=== PATIENT | male | born 1955 | race Hispanic/Latino ===

== ENCOUNTER 2018-11-15 10:26 | Emergency (ER) | payer BC ==
[2018-11-15 10:26] VITALS: BMI 31.2
[2018-11-15 10:37] VITALS: RESP 17
--- NOTE | 2018-11-15 11:12 | ED PDOC ---
HPI: Hypertension/Hypotension Time Seen by Provider: 11/15/18 10:35 Chief Complaint (Nursing): High Blood Pressure Chief Complaint (Provider): High Blood Pressure History Per: Patient History/Exam Limitations: no limitations Current Symptoms Are (Timing): Still Present Additional Complaint(s): 62 year old male with no significant medical history, is referred to the emergency department by photographic specialist in same-day surgery department, for an evaluation of elevated blood pressure. Patient is scheduled for ORIF of right calcaneus fracture today when his blood pressure was noted at 150/119. At pr esent, patient offers physical complaints but admits to feeling anxious about the surgery. He denies headache, chest pain, dizziness, or pain to right foot. Additionally, he states that he was doing well during medical clearance visit with his primary doctor. [place] Pod: Dr. Ambrose Davis Past Medical History Reviewed: Historical Data, Nursing Documentation, Vital Signs Vital Signs: Last Vital Signs Temp 98.3 F 11/15/18 10:30 Pulse 94 H 11/15/18 10:30 Resp 17 11/15/18 10:30 BP 169/105 H 11/15/18 10:38 Pulse Ox 99 11/15/18 10:30 - Medical History PMH: Arthritis Denies: Chronic Kidney Disease - Surgical History Surgical History: No Surg Hx - Family History Family History: States: Unknown Family Hx - Immunization History Hx Tetanus Toxoid Vaccination: No Hx Influenza Vaccination: No Hx Pneumococcal Vaccination: No - Home Medications Home Medications: Ambulatory Orders Medication Instructions Recorded Losartan [Cozaar] 50 mg PO DAILY #30 tab 11/15/18 - Allergies Allergies/Adverse Reactions: Allergies Allergy/AdvReac Type Severity Reaction Status Date / Time No Known Allergies Allergy Verified 11/15/18 07:13 Review of Systems ROS Statement: Except As Marked, All Systems Reviewed And Found Negative Cardiovascular: Negative for: Chest Pain Musculoskeletal: Negative for: Foot Pain (right-sided) Neurological: Negative for: Headache, Dizziness Psych: Positive for: Anxiety Physical Exam - Reviewed Nursing Documentation Reviewed: Yes Vital Signs Reviewed: Yes - Physical Exam Appears: Positive for: Well, Non-toxic, No Acute Distress Skin: Positive for: Normal Color Eye Exam: Positive for: Normal appearance, EOMI, PERRL Cardiovascular/Chest: Positive for: Regular Rate, Rhythm Respiratory: Positive for: Normal Breath Sounds. Negative for: Wheezing, Respiratory Distress Extremity: Positive for: Other (right foot in cast) Neurologic/Psych: Positive for: Alert, Oriented (x3). Negative for: Motor/Sensory Deficits - Laboratory Results Result Diagrams: 11/15/18 11:00 11/15/18 11:00 - ECG ECG: Positive for: Interpreted By Me, Viewed By Me ECG Rhythm: Positive for: Normal QRS, Normal ST Segment, Sinus Rhythm. Negative for: ST/T Changes Rate: 90 O2 Sat by Pulse Oximetry: 99 (RA) Pulse Ox Interpretation: Normal - Progress Re-evaluation Time: 13:40 Condition: Re-examined, Improved Medical Decision Making Medical Decision Making: Initial Impression: Elevated blood pressure Differential diagnosis: hypertension Initial Plan: * EKG * Labs with UA Time: 1055 --EKG: NSR at 90 BMP. Normal QRS with no ST changes. Time: 1127 --Labs reviewed: glucose at 126mg/dL. Otherwise, (-) UA or other significant clinical abnormality. Scribe Attestation: Documented by Joceline Magallon, acting as a scribe for Cedric Pierre MD. Provider Scribe Attestation: All medical record entries made by the Scribe were at my direction and personally dictated by me. I have reviewed the chart and agree that the record accurately reflects my personal performance of the history, physical exam, medical decision making, and the department course for this patient. I have also personally directed, reviewed, and agree with the discharge instructions and disposition. Disposition - Clinical Impression Clinical Impression: Abnormal blood pressure - Patient ED Disposition Is Patient to be Admitted: No Doctor Will See Patient In The: Office Counseled Patient/Family Regarding: Studies Performed, Diagnosis, Need For Followup - Disposition Disposition: Routine/Home Disposition Time: 13:41 Condition: GOOD Additional Instructions: ENEIDA HENSLEY, thank you for letting us take care of you today. Your provider was Cedric Pierre MD and you were treated for POSS HIGH BP. The emergency medical care you received today was directed at your acute symptoms. If you were prescribed any medication, please fill it and take as directed. It may take several days for your symptoms to resolve. Return to the Emergency Department if your symptoms worsen, do not improve, or if you have any other problems. Please contact your doctor or call one of the physicians/clinics you have been referred to that are listed on the Patient Visit Information form that is included in your discharge packet. Bring any paperwork you were given at discharge with you along with any medications you are taking to your follow up visit. Our treatment cannot replace ongoing medical care by a primary care provider outside of the emergency department. Thank you for allowing the [facility] team to be part of your care today. If you had an X-Ray or CT scan: A Radiologist will review the ED reading if any change in treatment is needed we will contact you. If you had a blood, urine, or wound culture: It will take several days for the results, if any change in treatment is needed we will contact you. If you had an STI test: It will take 48 hours for the results. Please call after 1 week if you have not heard back. Prescriptions: Losartan [Cozaar] 50 mg PO DAILY #30 tab Instructions: High Blood Pressure in Adults
[2018-11-15 11:15] LABS: BASO # 0.1 K/uL (0.0-0.2); BASO % 0.6 % (0.0-2.0); EOS # 0.1 K/uL (0.0-0.7); EOS % 0.7 % (0.0-4.0); HEMOGLOBIN 15.3 g/dL (12.0-18.0); LYMPH # 1.1 K/uL (1.0-4.3); LYMPH % 12.4 % (20.0-40.0); MEAN CELL VOLUME 83.9 fl (80.0-94.0); MEAN CORPUSCULAR HGB CONC 33.3 g/dL (33.0-37.0); MEAN PLATELET VOLUME 7.4 fl (7.2-11.7); MONO # 0.4 K/uL (0.0-0.8); MONO % 4.9 % (0.0-10.0); NEUT # 7.1 K/uL (1.8-7.0); NEUT % 81.4 % (50.0-75.0); RBC 5.47 Mil/uL (4.40-5.90); RED CELL DISTRIBUTION WIDTH 14.2 % (11.5-14.5); WHITE BLOOD COUNT 8.7 K/uL (4.8-10.8)
[2018-11-15 11:21] LABS: URINE BACTERIA RARE (<OCC); URINE BILIRUBIN NEGATIVE (NEGATIVE); URINE BLOOD NEGATIVE (NEGATIVE); URINE CLARITY SLIGHTY-CLOUDY (Clear); URINE COLOR YELLOW (YELLOW); URINE GLUCOSE (UA) NEG (NEGATIVE); URINE LEUKOCYTE ESTERASE NEG Leu/uL (Negative); URINE PROTEIN NEGATIVE (NEGATIVE); URINE UROBILINOGEN 0.2-1.0 mg/dL (0.2-1.0)
[2018-11-15 11:28] LABS: BLOOD UREA NITROGEN 13 mg/dl (9-20); CALCIUM 9.7 mg/dL (8.4-10.2); GFR NON-AFRICAN AMERICAN > 60
[2018-11-15 15:40] VITALS: PULSE 86; TEMP 98.7; O2SAT 100
[2018-11-15 15:45] VITALS: BP 140/101
--- NOTE | 2018-11-15 18:21 | CARD ---
APPROVED REPORT Date of service: 11/15/2018 EKG Measurement Heart [id number] <Conclusion> Normal sinus rhythm Incomplete right bundle branch block Borderline ECG
== END 2018-11-15 14:45 | disposition home or self-care (01) ==
LOC: H.ER 10:26
DX: I10 Essential (primary) hypertension (principal)

== ENCOUNTER 2018-11-22 06:33 | Day surgery (SDC) | payer BC ==
[2018-11-22 07:13] VITALS: BMI 22.3
[2018-11-22] MEDS ORDERED: Bupivacaine 0.5% 50 ML IJ ONE (07:31)
[2018-11-22] MEDS ORDERED: ceFAZolin 2 GM in Sodium Chloride 0.9% 100 ML IVPB ONE (07:31)
[2018-11-22] MEDS ORDERED: Lidocaine 2% Inj (20ml) INFIL ONE (07:31)
--- NOTE | 2018-11-22 07:35 | CP.PCM.PN ---
Subjective - Date & Time of Evaluation Date of Evaluation: 11/22/18 Time of Evaluation: 07:33 - Subjective Subjective: Podiatry progress note for Dr. Davis, 62 y/o male patient with no PMH seen and evaluated in [facility] preoperatively for right ORIF Calcaneal fracture with possible arthrodesis, STJ Arthroscopy Patient states that 3 weeks ago he sustained fall from stairs and landed on his right heel. Patient states that he felt pain and had swelling immediatly in his right heel so he went to [facility] emergency in [facility] where X-ray was done for him showing fracture in his right calcaneous. He stats that he was put in a posterior splint for 3 weeks till the swelling goes down and scheduled for surgery today. Patient surgery was postponed last week due to high blood pressure. He states that he went to his doctor who gave him blood pressure meds and his blood pressure optimized now. Patient confirms she last ate at 9:00 PM last night. Patient is aware with his surgery Patient denies any recent feer, nausea, vomiting, cough, or shortness of breathing. PMHx: None Medications: None Allergies: NKDA Social History: Denies smoking tobacco alcohol or drug use Objective - Constitutional Appears: Well, Non-toxic, No Acute Distress - Head Exam Head Exam: ATRAUMATIC, NORMOCEPHALIC - Extremities Exam Additional comments: Right Lower Extremity focused Exam: Right lower extremity is in posterior splint. Splint is clean/dry and intact. VASC:Cap refill less than 3 seconds to all digits NEURO: epicritic and protective sensation intact MSK: Patient can perform active ROM with his toes. - Neurological Exam Neurological Exam: Alert, Awake, Oriented x3 - Psychiatric Exam Psychiatric exam: Normal Affect, Normal Mood Assessment and Plan - Assessment and Plan (Free Text) Assessment: 62 y/o male patient seen and evaluated in [facility] preoperatively for right ORIF Calcaneal fracture with possible arthrodesis, STJ Arthroscopy Plan: Pt was seen and examined in [facility] Pt NPO status was confirmed All pre-op testing and clearance in chart Pt has exhausted all conservative treatment at this time and is opting for surgical intervention Pt was explained procedure and post-operative course All pt's questions were answered to satisfaction No guarantees were made Pt understands all risks, benefits and complications of procedure Pt will follow-up with Dr. Davis within 1 week of surgery
--- NOTE | 2018-11-22 07:37 | CP.SDSHP ---
Same Day Surgery H & P - History Proposed Procedure: Right ORIF Calcaneal fracture with possible arthrodesis, STJ Arthroscopy Pre-Op Diagnosis: Right calcaneal fracture - Allergies Allergies: Allergies No Known Allergies Allergy (Verified 11/22/18 07:12) - Physical Exam Mental Status: Alert & Oriented x3 - {Optional Preform as Required} Integument: Other (RLE is in posterior splint which is C/D/I) - Impression Pt. Evaluated Today:Candidate for Anesthesia & Procedure: Yes - Date & Time Date: 11/22/18 Time: 07:37 Short Stay Discharge - Short Stay Discharge Admitting Diagnosis/Reason for Visit: S92.061A Disposition: HOME/ ROUTINE Additional Instructions (Diet, Activity): -Patient in good/stable condition for discharge home -Patient to resume medications per medical reconciliation -Resume regular diet -Please keep dressing clean, dry, & intact to surgical site -Use plastic bag over bandage for showering -Wear post op shoe at all times when ambulating -Call clinic if you see signs of infection (redness, swelling, malodor) -Please make an appointment to see Dr. Davis in office within 1 week for post-op check Progress Note/Discharge Note with Instructions: - Patient evaluated bedside in recovery s/p 1- ORIF Right calcaneal fracture. 2- Right Subtalar joint Arthrodesis. 3- Right Subtalar joint Arthroscopy. - After surgical procedure patient in NAD - (+) Void, (+) Appetite - Capillary refill time <3s and NVS intact. - Patient denies complaints at this time. - Post operative instructions and plan of care explained to patient at length. - Patient. acknowledges verbal understanding. - Patient stable for DC per podiatric surgery
[2018-11-22] MEDS ORDERED: Sodium Chloride 0.9% 1,000 ML IV SCH (07:45)
[2018-11-22] MEDS ORDERED: Lactated Ringer's 1,000 ML IV ONE ×3 (08:00→12:01)
[2018-11-22] MEDS ORDERED: Midazolam 2 MG/2 ML VIAL ONE (08:01)
[2018-11-22] MEDS ORDERED: Propofol 10 mg/ml Inj (20 ML) ONE (08:01)
[2018-11-22] MEDS ORDERED: Rocuronium 10 mg/ml (5 ml) ONE ×2 (08:18→09:34)
[2018-11-22] MEDS ORDERED: ePHEDrine 50 mg/ml Inj ONE (08:29)
[2018-11-22] MEDS ORDERED: Bupivacaine HCl 0.5% PF (30 ml) Inj ONE (11:41)
[2018-11-22] MEDS ORDERED: Neostigmine 1:1000 (1 mg/ml) Inj ONE (11:42)
[2018-11-22] MEDS ORDERED: Sevoflurane - Inhalation Anesthetic Liq (250 ml) ONE (12:22)
[2018-11-22] MEDS ORDERED: Bupivacaine HCl 0.5% PF (30 ml) Inj IJ ONE (12:51)
[2018-11-22] MEDS ORDERED: Oxycodone/Acetaminophen 5/325 mg Tab PO PRN ×2 (13:14)
[2018-11-22] MEDS ORDERED: Lactated Ringer's 1,000 ML IV SCH (13:15)
--- NOTE | 2018-11-22 13:19 | PCM.SURG1 ---
Surgeon's Initial Post Op Note - Surgeon's Notes Surgeon: Dr. Ambrose Davis, DPM Sueding Machine Operator: Dr. Kelley Mccartney. DPM/PGY3, Dr. Staci Galloway. DPM/PGY3 Type of Anesthesia: General Endo Anesthesia Administered By: Dr. Stern Pre-Operative Diagnosis: Right Calcaneal intra-articular, displaced fracture. Operative Findings: See Dictation. Injectables: 10 cc of Marcaine 0.5% for Saphenous block for post-operative analgesia. Materials: - Femoral head graft. - 1.5 cc Castano medical augment. - Castano Nilay 6.5, 80mm short headed screw. - Castano Nilay 6.5, 65mm short headed screw. - 3-0 Vicryl. - 4-0 Vicryl. - 3- 0 Prolene. - 4-0 Prolene. Post-Operative Diagnosis: Right Calcaneal intra-articular, displaced fracture. Operation Performed: 1- ORIF Right calcaneal fracture. 2- Right Subtalar joint Arthrodesis. 3- Right Subtalar joint Arthroscopy. Specimen/Specimens Removed: None. Estimated Blood Loss: EBL {In ML}: 100 Blood Products Given: N/A Drains Used: No Drains Post-Op Condition: Good Date of Surgery/Procedure: 11/22/18 Time of Surgery/Procedure: 13:26
[2018-11-22] MEDS: HYDROmorphone 0.5 mg/0.5 ml ISec IVP PRN ×3 (13:30→14:15)
--- NOTE | 2018-11-22 14:18 | RAD ---
Date of service: 11/22/2018 PROCEDURE: Fluoroscopic assistance in excess of 1 hour. HISTORY: RIGHT FOOT COMPARISON: None TECHNIQUE: Standard protocol for this study/examination. FINDINGS: Total fluoroscopic time (continuous mode) utilized during the procedure 130.4 seconds. Total exam DLP: 6.86 (mGy). IMPRESSION: Submitted images from the current procedure: 12.0
[2018-11-22] MEDS ORDERED: STERILE IRRIGATING SOLUTION 15 ML IR ONE ×2 (15:00→15:35)
[2018-11-22] MEDS ORDERED: Oxycodone/Acetaminophen 5/325 mg Tab PO ONE (16:15)
[2018-11-22 20:31] VITALS: RESP 20
[2018-11-22 20:32] VITALS: BP 141/94; PULSE 101; TEMP 97.8; O2SAT 97
--- NOTE | 2018-11-23 14:56 | RAD ---
Date of service: 11/22/2018 PROCEDURE: Right Foot Radiographs. HISTORY: S/P R calc ORIF with STJ arthrodesis. COMPARISON: None. FINDINGS: BONES: Postoperative findings related to triple arthrodesis. JOINTS: Expected findings following surgical intervention. SOFT TISSUES: Normal. OTHER FINDINGS: None. IMPRESSION: Satisfactory postoperative status.
--- NOTE | 2018-11-27 15:21 | PCM.OP ---
Operative Report - Operative Report Date of Surgery/Procedure: 11/22/18 Time of Surgery/Procedure: 08:00 Surgeon: Dr. Ambrose Davis Sander Machine: Primary: Dr. Eugenio Mccartney PGY3, Secondary: Dr. Latoya Galloway, Dr. Brown Anesthesia/Sedation: General LMA and Regional Popliteal block Pre-Operative Diagnosis: Pre-Operative Diagnoses: 1) Right foot comminuted intra-articular calcaneal fracture Post-Operative Diagnosis: same Indication for Surgery: Indications: The patient is a 62 year-old male with the above diagnoses. Patien t have exhausted conservative treatment and now requests surgical intervention for right foot. The patient signed the consent after careful explanation of risks, benefits, complication and alternatives for surgical procedure. No guarantees were given nor implied. 2 grams of Ancef IV were given to the pt hour prior to the procedure. NPO status was confirmed prior to taking pt to the OR. Operative Findings: Preparation: The patient was brought to the operating room and placed on the operating room table in prone position. A well-padded pneumatic Thigh tourni quet was placed to the patient's right Thigh. Once general anesthesia was achieved, the right Lower extremity was then prepped and draped in usual sterile manner. Esmarch was utilized to exsanguinate the patient's right lower extremity. Pneumatic Thigh tourniquet was then inflated to 350 mmHg and procedure began. Procedure/Operation Description: PROCEDURE #1: Right foot arthroscopy assisted bone block distraction arthrodesis of Subtalar joint using internal fixations Attention was directed to the lateral aspect of the patients right foot where an L-type lateral extensile incision with an apex was made from directly anterior to lateral border of Achilles tendon extending distally overlying the plantar lateral aspect of the calcaneus. An incision was made with a #15 blade and dissected to the superficial and subcutaneous tissue utilizing sharp and blunt dissection. Care was taken to retract all vital neurovascular structures throughout the duration of the procedure. All superficial bleeding vessels were ligated and cauterized as necessary. The skin flap of lateral incision was atraumatically handled by applying #4-0 Nylon suture. At this time, sural nerve, peroneus Longus and Peroneus Brevis tendons were identified and gently retracted dorsally. Dissection was then carried down to the level of the periosteum overlying the lateral aspect of calcaneus and the subtalar joint. A #15 blade and freer elevator were then utilized to free all the periosteum and capsular tissues form the subtalar joint. It was noted that calcaneus bone was s everely comminuted with fractures extending into anterior, middle and posterior articular facets of calcaneus. An intra-operative arthroscopy was utilized to confirm the extent of the damage to all articular cartilages of calcaneus as well as that of the talus. Next, a 6.5mm Schanz pin was inserted into the calcaneal tuberosity from medial to lateral direction, only half way through. This medially placed pin was confirmed of its adequate position using intra-operative Xray, and was used as a joystick throughout the procedure. At this time, the subtalar joint as well as lateral aspect of calcaneus could be clearly visualized, and all loose bony fragments of calcaneus were removed from the right foot through the lateral incision. Utilizing a bone rongeur, these osseous fragment were prepared for autologous bone graft. After removal of fractured osseous fragments, significant defect of the calcaneus was noted, necessitating use of bone block for anatomic reconstruction of calcaneus. Next, attention was directed to the subtalar joint. Utilizing a bone curette and a small osteotome, the subtalar joint was prepared for arthrodesis, resecting dorsal aspect of the posterior and medial facets of the subtalar joint on the calcaneus, as well as the plantar aspect of the posterior and medial facets on the talus. Once the bone had been adequately resected, a rongeur were utilized to remove all resected portions of bone from the surgical field. At this time, it was noted that at the subtalar joint, cartilage and subchondral bone had been adequately prepared in preparation for the joint fusion. Next, utilizing a sagittal saw, a frozen femoral allograft was prepared to form a wedge to be fitted into the defect in the body of calcaneus. After positioning the allograft wedge into the calcaneocuboid joint, it was noted that the foot was able to achieve a corrected, abducted position with slight eversion of the calcaneus. Next, a 0.045 inch k-wire was utilized to perform micro-fracturing to all joints prepared for fusion. Next, the manual reduction was performed to put the subtalar joint in optimal position for fusion. With subtalar joint in its optimal position, total of three 0.062 inch K-wires were placed across subtalar joint to hold the joint in the corrected orientation. Next, the prepared autologous bone graft from the loose fracture fragments was packed into the site of arthrodesis. Next, two 0.062 K-wires were placed at the calcaneal tuberosity across the subtalar joint of right foot from plantar posterior to dorsal anterior orientation. Small stab incisions were made to the plantar aspect of right heel at exactly where the k-wires were placed. Excellent orientations of the k-wires were confirmed with intra-operative Xray. Under fluoroscopy, the subtalar joint was fixated utilizing two InflaRx Darco 6.5mm partially threaded cannulated screws over the initially placed K- wires, each measuring 80mm and a 65mm in length. Both screws provided excellent compression at the arthrodesis site, making sure to go through and across the allograft wedge to secure its adequate position. Utilizing intra-operative Xray, it was made sure that the screws did not protrude through the dorsal aspect of the Talus or into any other joint spaces. All k-wires were carefully removed from the right foot. Next, the surgical sites were gently flushed with copious amount of sterile normal saline solution so as to preserve the autologous bone graft placed earlier. Next, the Web[employer] medical Augment PDGF was prepared and was injected into the arthrodesis site. Excellent orientation of the joint position was confirmed with intra-operative Xray. Intra-operative fluoroscopy was utilized to confirm appropriate location of the hardware and corrected rectus joint positions of the foot with slight calcaneal eversion. The medially placed Schanz pin was carefully removed from the right foot. Next, deep tissues were reapproximated with #2-0 and #3-0 Vicryl, subcutanous tissues were reapproximated and copated with #4-0 Vicryl. Skin was reapproximated and coapted using #4-0 Prolene in Allgower Donati suture technique in order to best preserve cutaneous blood flow of the skin flap. Simple sutures were placed for the two small plantar incisions and one medial incision for Schanz pin. Saphenous block was performed with a total of 10cc of 0.5% Marcaine plain. All sites were now dressed with Betadine socked adaptic, dry 4x4 gauze, raymon, HAYLIE bandage and posterior splint. Popliteal block was performed by the Anesthesiologist under ultra-sound guidance. The attending was present during the entire case. Estimated Blood Loss: less than 60 mL Complications: none Discharge & Condition: Postoperative Condition: The patient tolerated the anesthesia and procedure well and was escorted to the recovery room with vital signs stable and neurovascular status intact to the Right foot and ankle. This patient will follow up with Dr. Davis
== END 2018-11-22 08:05 | disposition home or self-care (01) ==
LOC: H.OPSURG 06:33
PROVIDERS: ATTEND Podiatrist Foot & Ankle Surgery
DX: S92.061A Displaced intraarticular fracture of right calcaneus, initial encounter for closed fracture (principal); X58.XXXA Exposure to other specified factors, initial encounter; I10 Essential (primary) hypertension
CPT/HCPCS: 28725; 73630; 97116; 97162; G8978; G8979; G8980; J0690; J1170; J2001; J2250; J2405; J2704; J2710; J3010; J7030; J7120